=== PATIENT | female | born 1990 | race Caucasian/White ===

== ENCOUNTER 2021-11-29 21:40 | Emergency (ER) | payer MEDICAID ==
[~2021-11-29] VITALS: Ht 165.1 cm; Wt 92.5 kg
[~2021-11-29 21:40] MED LIST: FERR325E14 PO; IBUP-974 PO
[2021-11-29 21:45] VITALS: BP 140/81
--- NOTE | 2021-11-29 21:48 | NUR ---
TO LOBBY A/W BED AMBULATORY
[2021-11-29] MEDS ORDERED: NAPR-54 PO (23:10)
[2021-11-29] MEDS ORDERED: DEC4 PO (23:10)
[2021-11-29] MEDS ORDERED: KETOROLAC 60 MG/2 ML VIAL IM ONE (23:10)
[2021-11-29] MEDS ORDERED: ACET-10509 PO (23:14)
[2021-11-29] MEDS ORDERED: ACETAMINOPHEN EXTRA STRENGTH 500 MG TAB PO ONE (23:15)
== END 2021-11-29 23:15 | disposition home or self-care (01) ==
LOC: MED 21:40
DX: O98.512 Other viral diseases complicating pregnancy, second trimester (principal); U07.1 COVID-19; Z3A.21 21 weeks gestation of pregnancy
CPT/HCPCS: 99282

== ENCOUNTER 2022-06-17 09:47 | Day surgery (SDC) | payer OTHER ==
[~2022-06-17] VITALS: Ht 167.6 cm; Wt 97.1 kg
[2022-06-17] MEDS ORDERED: PROPOFOL 200 MG/20 ML VIAL IV ONE (11:00)
[2022-06-17] MEDS ORDERED: KETOROLAC 30 MG/ML VIAL ONE (11:00)
[2022-06-17] MEDS ORDERED: fentaNYL citrate 0.05 MG/ML - 50mL vial IV ONE (11:00)
[2022-06-17] MEDS ORDERED: SEVOFLURANE 250 ML BTL INH ONE (11:00)
[2022-06-17] MEDS ORDERED: ONDANSETRON 4 MG/2 ML VIAL ONE (11:00)
[2022-06-17 11:09] LABS: BASOPHILS % (AUTO) 0.6 % (0.0-2.0); EOSINOPHILS # (AUTO) 0.1 K/uL (0-0.4); EOSINOPHILS % (AUTO) 0.9 % (0.0-4.0); HEMATOCRIT 39.8 % (36-48); LYMPHOCYTES # (AUTO) 2.6 K/uL (2.5-16.5); LYMPHOCYTES % (AUTO) 33.9 % (20.5-51.1); MEAN CORPUSCULAR HEMOGLOBIN 27 pg (27-31); MEAN CORPUSCULAR HGB CONC 33 g/dL (33-37); MEAN CORPUSCULAR VOLUME 82.9 fL (80-94); MONOCYTES # (AUTO) 0.4 K/uL (0.8-1.0); MONOCYTES % (AUTO) 5.3 % (1.7-9.3); NEUTROPHILS # (AUTO) 4.5 K/uL (1.8-7.7); NEUTROPHILS % (AUTO) 59.3 % (42.2-75.2); PLATELET COUNT (AUTO) 333 K/uL (140-450); RED BLOOD CELL COUNT(AUTO) 4.81 MIL/uL (4.20-5.40); RED CELL DISTRIBUTION WIDTH 16.3 % (11.6-13.7); WHITE BLOOD COUNT (AUTO) 7.7 K/uL (4.8-10.8)
[2022-06-17 12:23] LABS: ALBUMIN 4.3 g/dL (3.4-5.0); ANION GAP 12.9 (8-16); CARBON DIOXIDE 28.3 mmol/L (21-32); CREATININE 0.7 mg/dL (0.6-1.3); POTASSIUM 4.2 mmol/L (3.5-5.1); TOTAL BILIRUBIN 0.3 mg/dL (0.0-1.0)
[2022-06-17] MEDS ORDERED: BUPIVACAINE-MPF 0.25% 30 ML VIAL INJ ONE (12:28)
[2022-06-17] MEDS ORDERED: LABETALOL 20 MG/4 ML VIAL IVP PRN (13:21)
[2022-06-17] MEDS ORDERED: hydrALAZINE 20 MG/ML VIAL IVP PRN (13:21)
[2022-06-17] MEDS ORDERED: METOCLOPRAMIDE 10 MG/2 ML INJ VIAL IVP PRN (13:21)
[2022-06-17] MEDS ORDERED: LACTATED RINGERS 1,000 ML IV SCH (13:25)
[2022-06-17] MEDS ORDERED: HYDROmorphone 1 MG/ML AMP IVP PRN (13:25)
== END 2022-06-17 15:33 | disposition home or self-care (01) ==
LOC: MDS 09:47 → MMU 09:53 → MDS 15:33
PROVIDERS: ATTEND Obstetrics & Gynecology
DX: Z30.2 Encounter for sterilization (principal); Z20.822 Contact with and (suspected) exposure to COVID-19; Z79.899 Other long term (current) drug therapy
CPT/HCPCS: 36415; 58670; 80053; 85025; 87426; J1885; J2405; J2704; J3010; J3490